=== PATIENT | female | born 1965 | race African-American/Black ===

== ENCOUNTER 2016-11-28 15:30 | Emergency (ER) | payer OTHER ==
--- NOTE | ~2016-11-28 | CR210 ---
[facility] A Service of [facility] & [facility] RADIOLOGY TEXT RESULTS PATIENT: TERESA NAGY LOCATION: CFT[facility] : 63 UNIT #: [id number] AGE: [address]: Olimpia Enrique APRN SEX: F ORDER DR: [id number] [facility] [address] [place], [place] [address] [id number] E MR#: [id number] Acc #: [id number] NAME: TERESA NAGY : 1965 SEX: F STUDY DATE/TIME: 11/28/2016 16:25 UNIT: CFTX ROOM: STUDY DESCRIPTION: CR Ribs Uni 2 View W PA Ch Lt Attending Physician: Olimpia Enrique A.P.R.N. Ordering Physician: [facility] Primary Care Physician: Дмитрий Yañez M.D. MEDICAL IMAGING REPORT This report is preliminary unless electronic signature is present EXAM Left ribs 4 views HISTORY Left rib pain after fall. Rib injury today. FINDINGS 4 views of the left ribs are negative. No fracture, pneumothorax or pleural effusion on the left. Surgical clips in the left axilla. IMPRESSION Negative left ribs. Dictated by... Derick House M.D. THIS IS AN ELECTRONICALLY VERIFIED REPORT Derick House M.D. at 11/29/2016 10:32 PM DFL/pcl TD: 11/29/2016 00:51 JOB #: [id number] MEDICAL IMAGING REPORT Page 1 of 1 COPY
--- NOTE | ~2016-11-28 | CR156 ---
[facility] A Service of [facility] & [facility] RADIOLOGY TEXT RESULTS PATIENT: TERESA NAGY LOCATION: CFTX : 63 UNIT #: [id number] AGE: [address]: Olimpia Enrique APRN SEX: F ORDER DR: [id number] [facility] [address] [place], [place] [address] [id number] E MR#: [id number] Acc #: [id number] NAME: TERESA NAGY : 1965 SEX: F STUDY DATE/TIME: 11/28/2016 16:41 UNIT: [facility] ROOM: STUDY DESCRIPTION: CR Humerus Min 2 View Lt Attending Physician: Olimpia Enrique A.P.R.N. Ordering Physician: Jeb Vasquez M.D. Primary Care Physician: Дмитрий Yañez M.D. MEDICAL IMAGING REPORT This report is preliminary unless electronic signature is present EXAM Left humerus, 2 views HISTORY Arm pain after fall yesterday. FINDINGS There is no evidence of fracture, dislocation, or radiopaque foreign body. No focal bone lesions are seen. IMPRESSION Normal humerus. e Dictated by... Derick House M.D. THIS IS AN ELECTRONICALLY VERIFIED REPORT Derick House M.D. at 11/29/2016 10:32 PM DFL/pcl TD: 11/29/2016 00:59 JOB #: [id number] MEDICAL IMAGING REPORT Page 1 of 1 COPY
--- NOTE | ~2016-11-28 | CR173 ---
[facility] A Service of [facility] & [facility] RADIOLOGY TEXT RESULTS PATIENT: TERESA NAGY LOCATION: [place] : 63 UNIT #: [id number] AGE: [address]: Olimpia Enrique APRN SEX: F ORDER DR: [id number] [facility] [address] [place], [place] [address] [id number] E MR#: [id number] Acc #: [id number] NAME: TERESA NAGY : 1965 SEX: F STUDY DATE/TIME: 11/28/2016 16:41 UNIT: [facility] ROOM: STUDY DESCRIPTION: CR Knee 3 Views Rt Attending Physician: Olimpia Enrique A.P.R.N. Ordering Physician: Jeb Vasquez M.D. Primary Care Physician: Дмитрий Yañez M.D. MEDICAL IMAGING REPORT This report is preliminary unless electronic signature is present EXAM Right knee 3 views HISTORY Knee pain after fall today. Injury. FINDINGS 3 views of the right knee demonstrate normal bone alignment. No fracture or effusion. Moderate-sized medial joint line marginal osteophyte has progressed compared to 12/03/2014 with mild degenerative changes in the medial compartment. IMPRESSION No acute findings. [id number] degenerative changes in the medial compartment have progressed compared to 12/03/2014. Dictated by... Derick House M.D. THIS IS AN ELECTRONICALLY VERIFIED REPORT Derick House M.D. at 11/29/2016 10:32 PM DFL/pcl TD: 11/29/2016 00:58 JOB #: [id number] MEDICAL IMAGING REPORT Page 1 of 1 COPY
--- NOTE | ~2016-11-28 | CR181 ---
[facility] A Service of [facility] & [facility] RADIOLOGY TEXT RESULTS PATIENT: TERESA NAGY LOCATION: CFT[facility] : 63 UNIT #: [id number] AGE: [address]: Olimpia Enrique APRN SEX: F ORDER DR: [id number] [facility] [address] [place], [place] [address] [id number] E MR#: [id number] Acc #: [id number] NAME: TERESA NAGY : 1965 SEX: F STUDY DATE/TIME: 11/28/2016 16:23 UNIT: [facility] ROOM: STUDY DESCRIPTION: CR Lumbar Spine 2 or 3 Views Attending Physician: Olimpia Enrique A.P.R.N. Ordering Physician: [facility] Primary Care Physician: Дмитрий Yañez M.D. MEDICAL IMAGING REPORT This report is preliminary unless electronic signature is present EXAM Lumbar spine 3 views HISTORY Back pain after fall yesterday. FINDINGS 3 views lumbar spine demonstrate satisfactory lumbar alignment. Minimal hypertrophic changes upper and lower lumbar spine. No fracture or subluxation. IMPRESSION No acute findings. Dictated by... Derick House M.D. THIS IS AN ELECTRONICALLY VERIFIED REPORT Derick House M.D. at 11/29/2016 10:32 PM DFL/pcl TD: 11/29/2016 00:50 JOB #: [id number] MEDICAL IMAGING REPORT Page 1 of 1 COPY
[~2016-11-28 15:30] MED LIST: ALBUTEROL17 G1 IH; CIPRO PO; DICLOFENAC PO; FLEXERIL10 MG PO; HYDROCODONE BITA5 GM PO; MEDROL4 MG/DOSE- PO; ORUDIS75 M1 PO; PREDNISONE1 MG PO; PREDNISONE10 MG/DOSE PO; ULTRAM PO; VICODIN 5/1 TAB 5/50 PO; ZITHROMAX PO
[2017-03-24] MEDS ORDERED: DESYREL150 M1 PO (15:49)
[2017-03-24] MEDS ORDERED: GABAPENTIN300 MG PO (15:49)
[2017-03-24] MEDS ORDERED: PRINIVIL20 M1 PO (15:49)
[2017-03-24] MEDS ORDERED: OXAPROZIN600 MG PO (15:50)
[2017-03-24] MEDS ORDERED: OMEPRAZOLE40 M1 PO (15:50)
[2017-03-24] MEDS ORDERED: CLONIDINE HCL0.1 MG PO (15:50)
[2017-03-24] MEDS ORDERED: DETROL PO (15:50)
[2017-03-24] MEDS ORDERED: EFFEXOR PO (15:51)
[2017-03-24] MEDS ORDERED: AMITRIPTYLINE H50 MG PO (15:51)
[2017-03-24] MEDS ORDERED: HYDROXYZINE HCL25 M1 (15:51)
[2017-03-24] MEDS ORDERED: FENOFIBRATE54 MG PO (15:52)
[2017-03-24] MEDS ORDERED: LORCET PLUS 7.1 EACH PO (15:52)
[2017-03-24] MEDS ORDERED: TAMOXIFEN CITRA20 MG PO (15:52)
[2017-03-24] MEDS ORDERED: MOVANTIK25 MG (15:53)
== END 2016-11-28 17:55 | disposition home or self-care (01) ==
LOC: CFTX 15:30 → CED 15:30 → CFTX 17:11
DX: S33.5XXA Sprain of ligaments of lumbar spine, initial encounter (principal); X58.XXXA Exposure to other specified factors, initial encounter; S80.02XA Contusion of left knee, initial encounter; S80.01XA Contusion of right knee, initial encounter; S40.022A Contusion of left upper arm, initial encounter; S20.212A Contusion of left front wall of thorax, initial encounter; I10 Essential (primary) hypertension; W19.XXXA Unspecified fall, initial encounter; Y92.481 Parking lot as the place of occurrence of the external cause; Z88.1 Allergy status to other antibiotic agents
CPT/HCPCS: 71101; 72100; 73060; 73562; 99284